=== PATIENT | male | born 1995 | race Hispanic/Latino ===

== ENCOUNTER 2017-12-21 17:31 | Emergency (ER) | payer SELFPAY ==
[~2017-12-21] VITALS: Ht 170.2 cm; Wt 88.5 kg
[2017-12-21] MEDS ORDERED: IBUPROFEN 600 MG TAB PO STA (20:16)
[2017-12-21 20:34] LABS: STREPTOCOCCUS GRP A ANTIGEN NEGATIVE (NEGATIVE)
[2017-12-21 20:42] LABS: INFLUENZAE A&B ANTIGEN (RAPID) NEGATIVE (NEGATIVE)
--- NOTE | 2017-12-21 21:33 | Diagnostic Imaging Report ---
EXAM: CHEST 2 VIEWS, PA and lateral ORDER DATE: 12/21/2017 8:16 PM TIME STAMP ON EXAM: 2058 INDICATION: Chest pain, nausea COMPARISON: None FINDINGS: LINES/TUBES: None LUNGS: No consolidations or edema. PLEURA: No effusions or pneumothorax. HEART AND MEDIASTINUM: Normal size and contour. BONES AND SOFT TISSUES: Surgical clips upper abdomen seen on lateral view. IMPRESSION: No acute thoracic abnormality. Signed by: Dr. Leeanne Garcia M.D. on 12/21/2017 9:29 PM
[2017-12-21] MEDS ORDERED: SODIUM CHLORIDE 0.9% 1000ML 1,000 ML IV SCH (21:45)
[2017-12-21] MEDS ORDERED: ONDANSETRON HCL INJ 2 MG/ML VIAL IV STA (21:45)
[2017-12-21 21:59] LABS: BASOPHILS % 0.4 % (0.0-1.0); EOSINOPHILS % 0.4 % (0.0-6.0); HEMATOCRIT 43.1 % (38.2-49.6); HEMOGLOBIN 15.3 g/dL (14.0-18.0); LYMPHOCYTES # (AUTO) 1.4 (1.0-3.2); LYMPHOCYTES % 12.2 % (18.0-39.1); MEAN CORPUSCULAR HEMOGLOBIN 28.7 pg (28-32); MEAN CORPUSCULAR HGB CONC 35.5 g/dL (31-35); MEAN CORPUSCULAR VOLUME 80.9 fL (81-99); MONOCYTES # (AUTO) 0.7 (0.2-0.8); MONOCYTES % 5.9 % (4.4-11.3); NEUTROPHILS # (AUTO) 9.1 (2.1-6.9); NEUTROPHILS % 80.7 % (38.7-80.0); PLATELET COUNT 144 x10e3/uL (140-360); RED BLOOD COUNT 5.33 x10e6/uL (4.3-5.7); RED CELL DISTRIBUTION WIDTH 12.7 % (11.7-14.4)
[2017-12-21 22:04] LABS: CLARITY,URINE SL CLOUDY (CLEAR); COLOR,URINE YELLOW (YELLOW)
[2017-12-21 22:05] LABS: BILIRUBIN,URINE NEGATIVE (NEGATIVE); KETONES,URINE 1+ (NEGATIVE); LEUKOCYTE ESTERASE ,URINE 2+ (NEGATIVE); NITRITE,URINE NEGATIVE (NEGATIVE); PROTEIN,URINE DIPSTICK 2+ (NEGATIVE); URINE UROBILINOGEN 0.2 mg/dL (0.2 - 1)
[2017-12-21 22:11] LABS: ALANINE AMINOTRANSFERASE 33 IU/L (0-55); ALBUMIN 3.8 g/dL (3.5-5.0); ALBUMIN/GLOBULIN RATIO 0.7 (0.8-2.0); ALKALINE PHOSPHATASE 82 IU/L (40-150); ANION GAP 23.8 mmol/L (8-16); BLOOD UREA NITROGEN 12 mg/dL (7-26); BUN/CREATININE RATIO 15 (6-25); CALCIUM 8.9 mg/dL (8.4-10.2); CARBON DIOXIDE 13 mmol/L (22-29); CHLORIDE 100 mmol/L (98-107); CREATININE, SERUM 0.78 mg/dL (0.72-1.25); EST GLOMERULAR FILTRATION RATE > 60 ML/MIN (60-); GLUCOSE 292 mg/dL (74-118); POTASSIUM 3.8 mmol/L (3.5-5.1); SODIUM 133 mmol/L (136-145)
[2017-12-21 22:11] LABS: BACTERIA,URINE MODERATE /HPF; MUCUS,URINE FEW (RARE); WBC,URINE (MAN) 21-50 /HPF (0-5)
[2017-12-21 22:15] LABS: AMPHETAMINES SCREEN,URINE NEGATIVE (NEGATIVE); BENZODIAZEPINES SCREEN,URINE NEGATIVE (NEGATIVE); PHENCYCLIDINE SCREEN,URINE NEGATIVE (NEGATIVE)
[2017-12-21] MEDS ORDERED: CEFTRIAXONE SOD 1 GM VIAL IV STA (23:25)
[2017-12-22 00:20] LABS: ABG PCO2 35 mmHg (41-51); ABG PH 7.46 (7.31-7.41); ABG PO2 117 mmHg (80-105)
[2017-12-22 00:21] LABS: ABG HCO3 25 mmol/L (23-28)
[2017-12-22 00:53] VITALS: BP 137/85
== END 2017-12-22 00:59 | disposition home or self-care (01) ==
LOC: ER 17:31
DX: J02.9 Acute pharyngitis, unspecified (principal); R11.2 Nausea with vomiting, unspecified; E86.0 Dehydration; J20.8 Acute bronchitis due to other specified organisms; E11.65 Type 2 diabetes mellitus with hyperglycemia; N30.90 Cystitis, unspecified without hematuria
CPT/HCPCS: 36415; 36600; 71020; 80053; 80307; 81001; 82805; 83518; 84484; 85025; 87070; 87086; 87400; 93005; 99283; J0696; J2405; J7030; 71046